=== PATIENT | male | born 1985 | race Caucasian/White ===

== ENCOUNTER 2016-11-09 20:37 | Emergency (ER) | payer OTHER ==
[2016-11-09 20:44] VITALS: O2SAT 94
[2016-11-09] MEDS ORDERED: NS 1,000 ML IV ONE (20:54)
--- NOTE | 2016-11-09 21:23 | EDPHY ---
H & P Stated Complaint: c/o nausea/dizziness x approx 2 hrs, says ate homemade MJ monica earlier Time Seen by Provider: 11/09/16 20:54 HPI/ROS: CHIEF COMPLAINT: Anxiety HISTORY OF PRESENT ILLNESS: The patient is a 31-year-old man who states that he ate part of a marijuana Brownie. He has never had a marijuana before. About 2 hours later he became very anxious and clammy and dizzy. He felt like he was going to faint. He feels nauseous but has not vomited. He states that this feels similar to an anxiety attack it several years ago. He denies chest pain or shortness of breath . REVIEW OF SYSTEMS: Constitutional: denies: chills, fever, recent illness, recent injury EENTM: denies: blurred vision, double vision, nose congestion Respiratory: denies: cough, shortness of breath Cardiac: denies: chest pain, irregular heart rate, lightheadedness, palpitations Gastrointestinal/Abdominal: denies: abdominal pain, diarrhea, nausea, vomiting, blood streaked stools Genitourinary: denies: dysuria, frequency, hematuria, pain Musculoskeletal: denies: joint pain, muscle pain Skin: denies: lesions, rash, jaundice, bruising Neurological: denies: headache, numbness, paresthesia, tingling, dizziness, weakness Hematologic/Lymphatic: denies: blood clots, easy bleeding, easy bruising Immunologic/allergic: denies: HIV/AIDS, transplant EXAM: GENERAL: Well-appearing, well-nourished and in no acute distress. HEAD: Atraumatic, normocephalic. EYES: Pupils equal round and reactive to light, extraocular movements intact, sclera anicteric, conjunctiva are normal. ENT: TMs normal, nares patent, oropharynx clear without exudates. Moist mucous membranes. NECK: Normal range of motion, supple without lymphadenopathy or JVD. LUNGS: Breath sounds clear to auscultation bilaterally and equal. No wheezes rales or rhonchi. HEART: Regular rate and rhythm without murmurs, rubs or gallops. ABDOMEN: Soft, nontender, normoactive bowel sounds. No guarding, no rebound. No masses appreciated. BACK: No CVA tenderness, no spinal tenderness, step-offs or deformities EXTREMITIES: Normal range of motion, no pitting or edema. No clubbing or cyanosis. NEUROLOGICAL: Cranial nerves II through XII grossly intact. Normal speech, normal gait. 5/5 strength, normal movement in all extremities, normal sensation PSYCH: Anxious, eyes clothes, sitting in the dark SKIN: Warm, dry, normal turgor, no visible rashes or lesions. Source: Patient Exam Limitations: No limitations - Medical/Surgical History Hx Asthma: No Hx Chronic Respiratory Disease: No Hx Diabetes: No Hx Cardiac Disease: No Hx Renal Disease: No Hx Cirrhosis: No Hx Alcoholism: No Hx HIV/AIDS: No Hx Splenectomy or Spleen Trauma: No Other PMH: Depression/anxiety - Family History Significant Family History: No pertinent family hx - Social History Smoking Status: Never smoked Alcohol Use: Occasionally Drug Use: Marijuana Constitutional: Initial Vital Signs Temperature (C) 36.6 C 11/09/16 20:40 Heart Rate 73 11/09/16 20:40 Respiratory Rate 16 11/09/16 20:40 Blood Pressure 140/96 H 11/09/16 20:40 O2 Sat (%) 94 11/09/16 20:40 O2 Delivery Mode Room Air Allergies/Adverse Reactions: No Known Allergies Allergy (Verified 11/09/16 20:45) Home Medications: Medication Instructions Recorded Bupropion HCl 11/09/16 Medical Decision Making ED Course/Re-evaluation: 11:00 p.m. the patient is feeling much better. He states that he feels he can go home. I encouraged him not to eat any more and marijuana. He agrees. Declines further workup or testing or observation. Differential Diagnosis: Partial list of the Differential diagnosis considered include but were not limited to; anxiety, marijuana intoxication, and although unlikely based on the history and physical exam, I also considered arrhythmia, infection, seizure. - Data Points Medications Given: Discontinued Medications Ondansetron HCl (Zofran Odt) 4 mg PO EDNOW ONE Stop: 11/09/16 21:57 Last Admin: 11/09/16 21:56 Dose: 4 mg Departure - Departure Disposition: Home, Routine, Self-Care Clinical Impression: Marijuana intoxication Qualifiers: Complication of substance-induced condition: uncomplicated Qualified Code(s): F12.920 - Cannabis use, unspecified with intoxication, uncomplicated Condition: Fair Instructions: Cannabis Abuse (ED) Referrals: Desiree Chan MD [Primary Care Provider] - As per Instructions
[2016-11-09] MEDS ORDERED: ONDANSETRON DISINTEGRATING 4 MG TAB ONE (21:37)
[2016-11-09] MEDS ORDERED: ONDANSETRON DISINTEGRATING 4 MG TAB PO ONE (21:56)
[2016-11-09 23:18] VITALS: BP 109/81; PULSE 77; RESP 18; TEMP 98.6
== END 2016-11-09 23:36 | disposition home or self-care (01) ==
DX: F12.920 Cannabis use, unspecified with intoxication, uncomplicated (principal)

== ENCOUNTER → 2018-06-20 | Outpatient (CLI) | payer OTHER | LOC: FIMAGING 12:47 | PROVIDERS: ATTEND Physician Assistant Medical | DX: R05 Cough (principal); Z87.09 Personal history of other diseases of the respiratory system ==